=== PATIENT | female | born 1990 | race Caucasian/White ===

== ENCOUNTER 2019-07-23 13:23 | Emergency (ER) | payer MEDICAID, OTHER ==
[~2019-07-23] VITALS: Ht 165.1 cm; Wt 81.1 kg
[2019-07-23] MEDS ORDERED: NS IV 1000 ML 1,000 ML IV STA (13:48)
--- NOTE | 2019-07-23 13:54 | ED Abdominal Pain ---
General Chief Complaint: Abdominal/GI Problems Stated Complaint: SYNCOPE; SUPRAPUBIC PAIN Source of Information: Patient, RN/MD, RN Notes Reviewed Exam Limitations: No Limitations History of Present Illness Date Seen by Provider: Jul 23, 2019 Time Seen by Provider: 13:49 Initial Comments This patient is a 29-year-old female that presents to the emerge from for left lower quadrant abdominal pain. Patient describes it as stabbing. Patient states she's had this before related to ovarian cyst. Patient understands we do not have ultrasound available on this emergency department. Patient states that she was 4 wheeling . States started having abdominal pain. Came to the emergency department. Patient took a hydrocodone and Xanax prior to coming to the emergency department. Timing/Duration: 1-3 Hours Severity/Quality: Moderate Location: [facility] Radiation: No Radiation Activities at Onset: None Allergies and Home Medications Allergies Coded Allergies: Penicillins (Verified Allergy, Unknown, 07/23/19) tramadol (Verified Allergy, Unknown, 07/23/19) Patient Home Medication List Home Medication List Reviewed: Yes Review of Systems Review of Systems Constitutional: No no symptoms reported; see HPI; No chills, No diaphoresis, No dizziness, No fever, No malaise, No weakness, No weight gain, No weight loss, No other EENTM: No No Symptoms Reported, No See HPI, No Blurred Vision, No Double Vision, No Eye Pain, No Eye Tearing, No Ear Drainage, No Ear Pain, No Mouth Pain, No Mouth Swelling, No Nose Congestion, No Nose Pain, No Throat Pain, No Throat Swelling, No Other Respiratory: Denies No Symptoms Reported, Denies See HPI, Denies Cough, Denies Orthopnea, Denies Shortness of Air, Denies SOA With Exertion, Denies SOA at Rest, Denies Stridor, Denies Wheezing, Denies Other Cardiovascular: Denies No Symptoms Reported, Denies See HPI, Denies Chest Pain, Denies Edema, Denies Irregular Heart Rate, Denies Lightheadedness, Denies Palpitations, Denies Syncope, Denies Other Gastrointestinal: Denies No Symptoms Reported; See HPI; Denies Abdomen Diste nded; Abdominal Pain; Denies Blood Streaked Stools, Denies Constipated, Denies Diarrhea, Denies Difficulty Swallowing, Denies Nausea, Denies Poor Appetite, Denies Poor Fluid Intake, Denies Rectal Bleeding, Denies Vomiting, Denies Other Genitourinary: Denies No Symptoms Reported, Denies See HPI, Denies Burning, Denies Discharge, Denies Drainage, Denies Frequency, Denies Flank Pain, Denies Hematuria, Denies Incontinence; Pain; Denies Urgency, Denies Other Musculoskeletal: No no symptoms reported, No see HPI, No back pain, No gout, No joint pain, No joint swelling, No muscle pain, No muscle stiffness, No muscle cramps, No muscle twitching, No muscle weakness, No neck pain, No other Skin: No no symptoms reported, No see HPI, No change in color, No change in hair/nails, No dryness, No hx of skin cancer, No lesions, No lumps, No pruritus, No rash, No other Psychiatric/Neurological: Denies No Symptoms Reported, Denies See HPI, Denies Anxiety, Denies Depressed, Denies Emotional Problems, Denies Headache, Denies Numbness, Denies Paresthesia, Denies Pre-Existing Deficit, Denies Seizure, Denies Tingling, Denies Tremors, Denies Weakness, Denies Other All Other Systems Reviewed Negative Unless Noted: Yes Past Mcwdshn-Wlsmpd-Dghxps Hx Patient Social History Recent Foreign Travel: No Physical Exam Vital Signs Vital Signs - First Documented 07/23/19 13:25 Temp 36.9 Pulse 103 Resp 15 B/P (MAP) 115/88 (97) Pulse Ox 97 O2 Delivery Room Air Capillary Refill : Height/Weight/BMI Height: '" Weight: lbs. oz. kg; BMI Method: General Appearance: WD/WN, no apparent distress HEENT: PERRL/EOMI, normal ENT inspection, TMs normal, pharynx normal Neck: non-tender, full range of motion, supple, normal inspection Respiratory: chest non-tender, lungs clear, normal breath sounds, no respiratory distress, no accessory muscle use Cardiovascular: normal peripheral pulses, regular rate, rhythm, no edema, no gallop, no JVD, no murmur Gastrointestinal: normal bowel sounds, non tender, soft, no organomegaly, no pulsatile mass, tenderness (LLQ) Extremities: normal range of motion, non-tender, normal inspection, no pedal edema, no calf tenderness, normal capillary refill, pelvis stable Progress/Results/Core Measures Results/Orders Lab Results Laboratory Tests Test 07/23/19 13:27 07/23/19 14:26 Range/Units White Blood Count 8.6 4.3-11.0 10^3/uL Red Blood Count 5.21 4.35-5.85 10^6/uL Hemoglobin 14.7 11.5-16.0 G/DL Hematocrit 44 35-52 % Mean Corpuscular Volume 84 80-99 FL Mean Corpuscular Hemoglobin 28 25-34 PG Mean Corpuscular Hemoglobin Concent 34 32-36 G/DL Red Cell Distribution Width 12.6 10.0-14.5 % Platelet Count 338 130-400 10^3/uL Mean Platelet Volume 9.8 7.4-10.4 FL Neutrophils (%) (Auto) 66 42-75 % Lymphocytes (%) (Auto) 24 12-44 % Monocytes (%) (Auto) 6 0-12 % Eosinophils (%) (Auto) 3 0-10 % Basophils (%) (Auto) 1 0-10 % Neutrophils # (Auto) 5.7 1.8-7.8 X 10^3 Lymphocytes # (Auto) 2.1 1.0-4.0 X 10^3 Monocytes # (Auto) 0.5 0.0-1.0 X 10^3 Eosinophils # (Auto) 0.2 0.0-0.3 10^3/uL Basophils # (Auto) 0.1 0.0-0.1 10^3/uL Sodium Level 139 135-145 MMOL/L Potassium Level 4.4 3.6-5.0 MMOL/L Chloride Level 102 98-107 MMOL/L Carbon Dioxide Level 22 21-32 MMOL/L Anion Gap 15 H 5-14 MMOL/L Blood Urea Nitrogen 12 7-18 MG/DL Creatinine 0.71 0.60-1.30 MG/DL Estimat Glomerular Filtration Rate > 60 BUN/Creatinine Ratio 17 Glucose Level 99 70-105 MG/DL Calcium Level 9.7 8.5-10.1 MG/DL Corrected Calcium 9.4 8.5-10.1 MG/DL Total Bilirubin 0.2 0.1-1.0 MG/DL Aspartate Amino Transf (AST/SGOT) 16 5-34 U/L Alanine Aminotransferase (ALT/SGPT) 17 0-55 U/L Alkaline Phosphatase 75 40-136 U/L Total Protein 7.2 6.4-8.2 GM/DL Albumin 4.4 3.2-4.5 GM/DL Amylase Level 46 25-125 U/L Lipase 16 8-78 U/L Human Chorionic Gonadotropin, Quant < 5 <5 MIU/ML Urine Color YELLOW Urine Clarity CLEAR Urine pH 5.0 5-9 Urine Specific Jackson 1.010 L 1.016-1.022 Urine Protein NEGATIVE NEGATIVE Urine Glucose (UA) NEGATIVE NEGATIVE Urine Ketones NEGATIVE NEGATIVE Urine Nitrite NEGATIVE NEGATIVE Urine Bilirubin NEGATIVE NEGATIVE Urine Urobilinogen 0.2 < = 1.0 MG/DL Urine Leukocyte Esterase NEGATIVE NEGATIVE Urine RBC (Auto) NEGATIVE NEGATIVE Urine RBC NONE /HPF Urine WBC NONE /HPF Urine Squamous Epithelial Cells 2-5 /HPF Urine Crystals NONE /LPF Urine Bacteria TRACE /HPF Urine Casts NONE /LPF Urine Mucus NEGATIVE /LPF Urine Culture Indicated NO Urine Opiates Screen POSITIVE H NEGATIVE Urine Oxycodone Screen NEGATIVE NEGATIVE Urine Methadone Screen NEGATIVE NEGATIVE Urine Propoxyphene Screen NEGATIVE NEGATIVE Urine Barbiturates Screen NEGATIVE NEGATIVE Ur Tricyclic Antidepressants Screen NEGATIVE NEGATIVE Urine Phencyclidine Screen NEGATIVE NEGATIVE Urine Amphetamines Screen NEGATIVE NEGATIVE Urine Methamphetamines Screen NEGATIVE NEGATIVE Urine Benzodiazepines Screen POSITIVE H NEGATIVE Urine Cocaine Screen NEGATIVE NEGATIVE Urine Cannabinoids Screen NEGATIVE NEGATIVE My Orders Orders - GARTH ROLDAN MD Comprehensive Metabolic Panel (07/23/19 13:46) Lipase (07/23/19 13:46) Amylase (07/23/19 13:46) Ua Culture If Indicated (07/23/19 13:46) Ed Iv/Invasive Line Start (07/23/19 13:46) Cbc With Automated Diff (07/23/19 13:46) Ct Abdomen/Pelvis W (07/23/19 13:46) Hcg,Quantitative (07/23/19 13:46) Drug Screen Stat (Urine) (07/23/19 13:48) Ns Iv 1000 Ml (Sodium Chloride 0.9%) (07/23/19 13:48) Iohexol Injection (Omnipaque 350 Mg/Ml 1 (07/23/19 14:00) Received Contrast (Hold Metformin- Contr (07/23/19 14:00) Sodium Chloride Flush (Catheter Flush Sy (07/23/19 14:00) Ns (Ivpb) (Sodium Chloride 0.9% Ivpb Bag (07/23/19 14:00) Medications Given in ED Current Medications Medications Dose Ordered Sig/Magalie Route Start Time Stop Time Status Last Admin Dose Admin Iohexol 100 ml ONCE ONCE IV 07/23/19 14:00 07/23/19 14:01 DC 07/23/19 14:32 100 ML Sodium Chloride 10 ml NEEDED PRN IV 07/23/19 14:00 07/23/19 14:32 10 ML Sodium Chloride 100 ml ONCE ONCE IV 07/23/19 14:00 07/23/19 14:01 DC 07/23/19 14:32 80 ML Vital Signs/I&O 07/23/19 13:25 Temp 36.9 Pulse 103 Resp 15 B/P (MAP) 115/88 (97) Pulse Ox 97 O2 Delivery Room Air Progress Progress Note : Time: 15:52 Progress Note Negative for any acute findings. Patient does have an old clapped ovarian cyst on the right and negative on the left. Patient does not appear to be in acute pain has been sleeping since arrival to the emergency department. Patient did take home hydrocodone and Xanax prior to coming to the emergency department. We'll write a prescription for diclofenac for abdominal pain. Patient encouraged to have rest and encourage by mouth fluids and follow-up with her PCP in 2-3 days. Departure Impression Primary Impression: Nonspecific abdominal pain Disposition: HOME, SELF-CARE Condition: Stable Departure-Patient Inst. Patient Instructions: Ovarian Cyst (DC) Add. Discharge Instructions: Take prescription for diclofenac for abdominal pain. Patient encouraged to have rest and encourage by mouth fluids and follow-up with her PCP in 2-3 days. All discharge instructions reviewed with patient and/or family. Voiced understanding. Scripts Diclofenac Sodium (Diclofenac Sodium) 75 Mg Tablet. 75 MG PO BID for 10 Days, #20 TAB 0 Refills Prov: GARTH ROLDAN MD 07/23/19 GARTH ROLDAN MD Jul 23, 2019 13:54
[2019-07-23 13:58] LABS: HEMATOCRIT 44 % (35-52); HEMOGLOBIN 14.7 G/DL (11.5-16.0); MEAN CORPUSCULAR HEMOGLOBIN 28 PG (25-34); MEAN CORPUSCULAR VOLUME 84 FL (80-99); WHITE BLOOD COUNT 8.6 10^3/uL (4.3-11.0)
[2019-07-23 13:59] LABS: BASOPHILS # (AUTO) 0.1 10^3/uL (0.0-0.1); BASOPHILS % (AUTO) 1 % (0-10); EOSINOPHILS # (AUTO) 0.2 10^3/uL (0.0-0.3); EOSINOPHILS % (AUTO) 3 % (0-10); LYMPHOCYTES # (AUTO) 2.1 X 10^3 (1.0-4.0); LYMPHOCYTES % (AUTO) 24 % (12-44); MEAN CORPUSCULAR HGB CONC 34 G/DL (32-36); MEAN PLATELET VOLUME 9.8 FL (7.4-10.4); MONOCYTES # (AUTO) 0.5 X 10^3 (0.0-1.0); MONOCYTES % (AUTO) 6 % (0-12); NEUTROPHILS # (AUTO) 5.7 X 10^3 (1.8-7.8); NEUTROPHILS % (AUTO) 66 % (42-75); PLATELET COUNT 338 10^3/uL (130-400); RED CELL DISTRIBUTION WIDTH 12.6 % (10.0-14.5)
[2019-07-23] MEDS ORDERED: IOHEXOL 350 MG/ML 100 ML (OMNIPAQUE 350) VIAL IV ONE (14:00)
[2019-07-23] MEDS ORDERED: HOLD METFORMIN - RECEIVED CONTRAST 20 ML VIAL IV SCH (14:00)
[2019-07-23] MEDS ORDERED: CATHETER FLUSH 10 ML SYR IV PRN (14:00)
[2019-07-23] MEDS ORDERED: NS 100 ML (IVPB) BAG IV ONE (14:00)
[2019-07-23 14:19] LABS: BUN/CREATININE RATIO 17; CARBON DIOXIDE 22 MMOL/L (21-32); CHLORIDE 102 MMOL/L (98-107); CREATININE SERUM 0.71 MG/DL (0.60-1.30); GFR ESTIMATED > 60; GLUCOSE 99 MG/DL (70-105); POTASSIUM 4.4 MMOL/L (3.6-5.0); SODIUM 139 MMOL/L (135-145)
[2019-07-23 14:20] LABS: ALANINE AMINOTRANSFERASE 17 U/L (0-55); ALBUMIN 4.4 GM/DL (3.2-4.5); ALKALINE PHOSPHATASE 75 U/L (40-136); AMYLASE 46 U/L (25-125); BILIRUBIN,TOTAL 0.2 MG/DL (0.1-1.0); CALCIUM 9.7 MG/DL (8.5-10.1); LIPASE 16 U/L (8-78); TOTAL PROTEIN 7.2 GM/DL (6.4-8.2)
--- NOTE | 2019-07-23 14:43 | Diagnostic Imaging Report ---
PROCEDURE: CT abdomen and pelvis with contrast. TECHNIQUE: Multiple contiguous axial images were obtained through the abdomen and pelvis after administration of intravenous contrast. Auto Exposure Controls were utilized during the CT exam to meet ALARA standards for radiation dose reduction. INDICATION: Left lower quadrant pain. COMPARISON: No prior studies are available for comparison. FINDINGS: The lung bases are clear. There is an 11 mm low density in the inferior right lobe of the liver which is too small to characterize but is perhaps a small cyst. No other liver lesions are identified. The gallbladder is surgically absent. No biliary ductal dilatation is identified. The pancreas and spleen are unremarkable. No adrenal mass is detected. The kidneys are without evidence of hydronephrosis. The aorta is nonaneurysmal. The small and large bowel loops appear to be of normal caliber. No obstruction is identified. No free fluid in the abdomen or pelvis is identified. There is a partially collapsed cyst in the right ovary measuring 18 mm. The left ovary is unremarkable. The bladder and uterus are unremarkable. No inflammatory changes are seen. The bony structures are nonacute. IMPRESSION: 1. Hepatic low density which is too small to characterize but perhaps a small cyst. 2. Partially collapsed 18 mm right ovarian cyst. 3. No other significant abnormality in the abdomen or pelvis is identified. Dictated by: Dictated on workstation # [id number]
[2019-07-23 15:15] LABS: CLARITY,URINE CLEAR; COLOR,URINE YELLOW
[2019-07-23 15:16] LABS: BACTERIA,URINE TRACE /HPF; BILIRUBIN,URINE NEGATIVE (NEGATIVE); GLUCOSE, URINE (UA) NEGATIVE (NEGATIVE); KETONES,URINE NEGATIVE (NEGATIVE); LEUKOCYTE ESTERASE ,URINE NEGATIVE (NEGATIVE); NITRITE,URINE NEGATIVE (NEGATIVE); PROTEIN,URINE NEGATIVE (NEGATIVE)
[2019-07-23 15:22] LABS: AMPHETAMINE SCREEN, URINE NEGATIVE (NEGATIVE); BARBITURATE SCREEN URINE NEGATIVE (NEGATIVE); BENZODIAZEPINES SCREEN URINE POSITIVE (NEGATIVE); CANNABINOID SCREEN, URINE NEGATIVE (NEGATIVE); COCAINE SCREEN URINE NEGATIVE (NEGATIVE); METHADONE STAT NEGATIVE (NEGATIVE); METHAMPHETAMINE SCREEN URINE S NEGATIVE (NEGATIVE); OPIATE SCREEN URINE POSITIVE (NEGATIVE); OXYCODONE STAT NEGATIVE (NEGATIVE); PROPOXYPHENE STAT NEGATIVE (NEGATIVE); TRICYCLIC ANTIDEPRESSANTS SCRE NEGATIVE (NEGATIVE)
[2019-07-23] MEDS ORDERED: DICL75TA2 PO (15:54)
[2019-07-23 16:08] VITALS: BP 131/62
== END 2019-07-23 16:08 | disposition home or self-care (01) ==
LOC: ER FS 13:25
DX: R10.32 Left lower quadrant pain (principal); Z88.0 Allergy status to penicillin; Z88.5 Allergy status to narcotic agent
CPT/HCPCS: 36415; 74177; 80053; 80306; 81000; 82150; 83690; 84702; 85025

== ENCOUNTER → 2019-08-08 | Outpatient (CLI) | payer MEDICAID ==
[~2019-08-08] MED LIST: DICL75TA2 PO
--- NOTE | 2019-08-08 11:39 | Diagnostic Imaging Report ---
INDICATION: Chronic back pain. Time of exam 11:23 AM Frontal and lateral views of the lumbar spine were obtained. Coned lumbosacral view was also obtained. Curvature and alignment is normal. Vertebral body heights and disc spaces are well-maintained. No fracture or subluxation is identified. IMPRESSION: No acute bony abnormality is detected. Dictated by: Dictated on workstation # [id number]
== END ==
LOC: RAD FS 10:57
PROVIDERS: ATTEND Nurse Practitioner Family
DX: M54.41 Lumbago with sciatica, right side (principal); M54.42 Lumbago with sciatica, left side; G89.29 Other chronic pain
CPT/HCPCS: 72100

== ENCOUNTER → 2019-08-28 | Outpatient (CLI) | payer MEDICAID, OTHER ==
--- NOTE | 2019-08-28 13:13 | Diagnostic Imaging Report ---
PROCEDURE: MRI lumbar spine. TECHNIQUE: Multiplanar, multisequence MRI of the lumbar spine was performed without contrast. INDICATION: Chronic low back pain. COMPARISON: No prior studies are available for comparison. FINDINGS: Curvature and alignment of the lumbar spine is normal. Vertebral body heights are maintained. The marrow signal intensity appears normal. No geographic marrow lesion or compression fracture is seen. There appears to be normal height and hydration to the lumbar intervertebral discs. Conus is unremarkable at the L1 level. T12-L1: Central canal and neural foramina are widely patent. L1-L2: The central canal and neural foramina are widely patent. L2-L3: Central canal and neural foramina are widely patent. L3-L4: Central canal and neural foramina are widely patent. L4-L5: Very minimal midline disc bulge is seen but no resultant central canal narrowing is identified. Neural foramina are widely patent. There does appear to be some mild degenerative facet changes noted. L5-S1: Central canal and neural foramina are widely patent. Very mild facet degenerative changes seen. Paraspinous tissues are unremarkable. IMPRESSION: Essentially unremarkable MRI of the lumbar spine apart from lower lumbar facet arthropathy as well very tiny disc bulge at L4-L5. No resultant central canal or neural foraminal stenosis is identified. Dictated by: Dictated on workstation # [id number]
== END ==
LOC: RAD 11:48
PROVIDERS: ATTEND Physician Assistant
DX: M46.96 Unspecified inflammatory spondylopathy, lumbar region (principal)
CPT/HCPCS: 72148

== ENCOUNTER 2019-10-30 11:12 | Emergency (ER) | payer MEDICAID ==
[~2019-10-30] VITALS: Ht 165 cm; Wt 80.0 kg
--- OUTSIDE RECORDS SUMMARY | 2019-10-30 11:33 | XMS REPORT | Continuity of Care Document ---
Author Organization Unknown Address Unknown Phone Unavailable Allergies Active Description Code Type Severity Reaction Onset Reported/Identified Relationship to Patient Clinical Status Yes Penicillins [id number] Drug Aller gy Unknown N/A 07/23/2019 Yes tramadol [id number] Drug Allergy Unknown N/A 07/23/2019 Medications There is no data. Problems Date Dx Coded Attending Type Code Diagnosis Diagnosed By 07/23/2019 GARTH ROLDAN MD Ot R10.32 LEFT LOWER QUADRANT PAIN 07/23/2019 GARTH ROLDAN MD Ot Z88.0 ALLERGY STATUS TO PENICILLIN 07/23/2019 GARTH ROLDAN MD Ot Z88.5 ALLERGY STATUS TO NARCOTIC AGENT STATUS 07/25/2019 GARTH ROLDAN MD Ot R10.32 LEFT LOWER QUADRANT PAIN 07/25/2019 GARTH ROLDAN MD Ot Z88.0 ALLERGY STATUS TO PENICILLIN 07/25/2019 GARTH ROLDAN MD Ot Z88.5 ALLERGY STATUS TO NARCOTIC AGENT STATUS 08/09/2019 O'DELL, ALIVIA K CAMERA PERSON Ot G89.29 OTHER CHRONIC PAIN 08/09/2019 O'DELL, ALIVIA K CAMERA PERSON Ot M54.41 LUMBAGO WITH SCIATICA, RIGHT SIDE 08/09/2019 O'DELL, ALIVIA K CAMERA PERSON Ot M54.42 LUMBAGO WITH SCIATICA, LEFT SIDE 08/11/2019 O'DELL, ALIVIA K CAMERA PERSON Ot G89.29 OTHER CHRONIC PAIN 08/11/2019 O'DELL, ALIVIA K CAMERA PERSON Ot M54.41 LUMBAGO WITH SCIATICA, RIGHT SIDE 08/11/2019 O'DELL, ALIVIA K CAMERA PERSON Ot M54.42 LUMBAGO WITH SCIATICA, LEFT SIDE 08/12/2019 O'DELL, ALIVIA K CAMERA PERSON Ot G89.29 OTHER CHRONIC PAIN 08/12/2019 O'DELL, ALIVIA K CAMERA PERSON Ot M54.41 LUMBAGO WITH SCIATICA, RIGHT SIDE 08/12/2019 O'DELL, ALIVIA K CAMERA PERSON Ot M54.42 LUMBAGO WITH SCIATICA, LEFT SIDE 08/12/2019 O'DELL, ALIVIA K CAMERA PERSON Ot G89.29 OTHER CHRONIC PAIN 08/12/2019 O'DELL, ALIVIA K CAMERA PERSON Ot M54.41 LUMBAGO WITH SCIATICA, RIGHT SIDE 08/12/2019 O'DELL, ALIVIA K CAMERA PERSON Ot M54.42 LUMBAGO WITH SCIATICA, LEFT SIDE 08/12/2019 O'DELL, ALIVIA K CAMERA PERSON Ot G89.29 OTHER CHRONIC PAIN 08/12/2019 O'DELL, ALIVIA K CAMERA PERSON Ot M54.41 LUMBAGO WITH SCIATICA, RIGHT SIDE 08/12/2019 O'DELL, ALIVIA K CAMERA PERSON Ot M54.42 LUMBAGO WITH SCIATICA, LEFT SIDE 08/13/2019 O'DELL, ALIVIA K CAMERA PERSON Ot G89.29 OTHER CHRONIC PAIN 08/13/2019 O'DELL, ALIVIA K CAMERA PERSON Ot M54.41 LUMBAGO WITH SCIATICA, RIGHT SIDE 08/13/2019 O'DELL, ALIVIA K CAMERA PERSON Ot M54.42 LUMBAGO WITH SCIATICA, LEFT SIDE 08/14/2019 O'DELL, ALIVIA K CAMERA PERSON Ot G89.29 OTHER CHRONIC PAIN 08/14/2019 O'DELL, ALIVIA K CAMERA PERSON Ot M54.41 LUMBAGO WITH SCIATICA, RIGHT SIDE 08/14/2019 O'DELL, ALIVIA K CAMERA PERSON Ot M54.42 LUMBAGO WITH SCIATICA, LEFT SIDE 08/21/2019 O'DELL, ALIVIA K CAMERA PERSON Ot G89.29 OTHER CHRONIC PAIN 08/21/2019 O'DELL, ALIVIA K CAMERA PERSON Ot M54.41 LUMBAGO WITH SCIATICA, RIGHT SIDE 08/21/2019 O'DELL, ALIVIA K CAMERA PERSON Ot M54.42 LUMBAGO WITH SCIATICA, LEFT SIDE 08/23/2019 O'DELL, ALIVIA K CAMERA PERSON Ot G89.29 OTHER CHRONIC PAIN 08/23/2019 O'DELL, ALIVIA K CAMERA PERSON Ot M54.41 LUMBAGO WITH SCIATICA, RIGHT SIDE 08/23/2019 O'DELL, ALIVIA K CAMERA PERSON Ot M54.42 LUMBAGO WITH SCIATICA, LEFT SIDE 08/23/2019 O'DELL, ALIVIA K CAMERA PERSON Ot G89.29 OTHER CHRONIC PAIN 08/23/2019 O'DELL, ALIVIA K CAMERA PERSON Ot M54.41 LUMBAGO WITH SCIATICA, RIGHT SIDE 08/23/2019 O'DELL, ALIVIA K CAMERA PERSON Ot M54.42 LUMBAGO WITH SCIATICA, LEFT SIDE 08/25/2019 O'DELL, ALIVIA K CAMERA PERSON Ot G89.29 OTHER CHRONIC PAIN 08/25/2019 O'DELL, ALIVIA K CAMERA PERSON Ot M54.41 LUMBAGO WITH SCIATICA, RIGHT SIDE 08/25/2019 O'DELL, ALIVIA K CAMERA PERSON Ot M54.42 LUMBAGO WITH SCIATICA, LEFT SIDE Procedures There is no data. Results Test Result Range Complete blood count (CBC) with automate d white blood cell (WBC) differential - 07/23/19 13:27 Blood leukocytes automated count (number/volume) 8.6 10*3/uL 4.3-11.0 Blood erythrocytes automated count (number/volume) 5.21 10*6/uL 4.35-5.85 Venous blood hemoglobin measurement (mass/volume) 14.7 g/dL 11.5-16.0 Blood hematocrit (volume fraction) 44 % 35-52 Automated erythrocyte mean corpuscular volume 84 [ foz_us] 80-99 Automated erythrocyte mean corpuscular h emoglobin (mass per erythrocyte) 28 pg 25-34 Automated erythrocyte mean corpuscular h emoglobin concentration measurement (mass/volume) 34 g/dL 32-36 Automated erythrocyte distribution width ratio 12. 6 % 10.0- 14.5 Automated blood platelet count (count/volume) 338 10*3/uL 130-400 Automated blood platelet mean volume measurement 9.8 [foz_us] 7.4-10.4 Automated blood neutrophils/100 leukocytes 66 % 42-75 Automated blood lymphocytes/100 leukocytes 24 % 12-44 Blood monocytes/100 leukocytes 6 % 0-12 Automated blood eosinophils/100 leukocytes 3 % 0-10 Automated blood basophils/100 leukocytes 1 % 0-10 Blood neutrophils automated count (number/volume) 5.7 10*3 1.8-7.8 Blood lymphocytes automated count (number/volume) 2.1 10*3 1.0-4.0 Blood monocytes automated count (number/volume) 0. 5 10*3 0.0-1.0 Automated eosinophil count 0.2 10*3/uL 0 .0-0.3 Automated blood basophil count (count/volume) 0.1 10*3/uL 0.0-0.1 Serum or plasma choriogonadotropin measu rement (units/volume) - 07/23/19 13:27 Serum or plasma choriogonadotropin measurement (units/ volume) < m[iU]/mL <5 Comprehensive metabolic panel - 07/23/19 13:27 Serum or plasma sodium measurement (moles/volume) 139 mmol/L 135-145 Serum or plasma potassium measurement (moles/volume) 4.4 mmol/L 3.6-5.0 Serum or plasma chloride measurement (moles/volume) 102 mmol/L 98-107 Carbon dioxide 22 mmol/L 21-32 Serum or plasma anion gap determination (moles/volume) 15 mmol/L 5-14 Serum or plasma urea nitrogen measurement (mass/volume ) 12 mg/dL 7-18 Serum or plasma creatinine measurement (mass/volume) 0.71 mg/dL 0.60-1.30 Serum or plasma urea nitrogen/creatinine mass ratio 17 NRG Serum or plasma creatinine measurement w ith calculation of estimated glomerular filtration rate > NRG Serum or plasma glucose measurement (mass/volume) 99 mg/dL 70-105 Serum or plasma calcium measurement (mass/volume) 9.7 mg/dL 8.5-10.1 Serum or plasma total bilirubin measurement (mass/volu me) 0.2 mg/dL 0.1-1.0 Serum or plasma alkaline phosphatase julian surement (enzymatic activity/volume) 75 U/L 40-136 Serum or plasma aspartate aminotransfera se measurement (enzymatic activity/volume) 16 U/L 5-34 Serum or plasma alanine aminotransferase measurement (enzymatic activity/volume) 17 U/L 0-55 Serum or plasma protein measurement (mass/volume) 7.2 g/dL 6.4-8.2 Serum or plasma albumin measurement (mass/volume) 4.4 g/dL 3.2-4.5 CALCIUM CORRECTED 9.4 mg/dL 8.5-10.1 Serum or plasma amylase measurement (enz ymatic activity/volume) - 07/23/19 13:27 Serum or plasma amylase measurement (enzymatic activit y/volume) 46 U/L 25-125 Lipase - 07/23/19 13:27 Lipase 16 U/L 8-78 Complete urinalysis with reflex to cultu re - 07/23/19 14:26 Urine color determination YELLOW NRG Urine clarity determination CLEAR NR G Urine pH measurement by test strip 5.0 5-9 Specific gravity of urine by test strip 1.010 1.016-1.022 Urine protein assay by test strip, semi-quantitative NEGATIVE NEGATIVE Urine glucose detection by automated test strip NE GATIVE NEGATIVE Erythrocytes detection in urine sediment by light micr oscopy NEGATIVE NEGATIVE Urine ketones detection by automated test strip NE GATIVE NEGATIVE Urine nitrite detection by test strip NEGATIVE NEGATIVE Urine total bilirubin detection by test strip NEGA TIVE NEGATIVE Urine urobilinogen measurement by automated test strip (mass/volume) 0.2 mg/dL < = 1.0 Urine leukocyte esterase detection by dipstick NEG ATIVE NEGATIVE Automated urine sediment erythrocyte cou nt by microscopy (number/high power field) NONE NRG Automated urine sediment leukocyte count by microscopy (number/high power field) NONE NRG Bacteria detection in urine sediment by light microsco py TRACE NRG Squamous epithelial cells detection in u rine sediment by light microscopy 2-5 NRG Crystals detection in urine sediment by light microsco py NONE NRG Casts detection in urine sediment by light microscopy NONE NRG Mucus detection in urine sediment by light microscopy NEGATIVE NRG Complete urinalysis with reflex to culture NO NRG Urine drug screening test - 07/23/19 14: 26 Urine phencyclidine detection by screening method NEGATIVE NEGATIVE Urine benzodiazepines detection by screening method POSITIVE NEGATIVE Urine cocaine detection NEGATIVE NEGATI VE Urine amphetamines detection by screening method N EGATIVE NEGATIVE Urine methamphetamine detection by screening method NEGATIVE NEGATIVE Urine cannabinoids detection by screening method N EGATIVE NEGATIVE Urine opiates detection by screening method POSITI VE NEGATIVE Urine barbiturates detection NEGATIVE N EGATIVE Screening urine tricyclic antidepressants detection NEGATIVE NEGATIVE Urine methadone detection by screening method NEGA TIVE NEGATIVE Urine oxycodone detection NEGATIVE NEGA TIVE Urine propoxyphene detection NEGATIVE N EGATIVE T3 FREE - 08/08/19 10:41 T3, FREE 3.5 pg/mL 2.3-4.2 PATHOLOGY REPORT (TISSUE PAHOLOGY) - 10:08 A SOURCE NRG A GROSS DESCRIPTION NRG A DIAGNOSIS NRG CLINICAL INFORMATION NRG PATHOLOGIST NRG PATHOLOGY REPORT (TISSUE PAHOLOGY) - 01/13 16:28 A SOURCE NRG A GROSS DESCRIPTION NRG A DIAGNOSIS NRG CLINICAL INFORMATION NRG PATHOLOGIST NRG HCG, QUANTITATIVE - 09/12/19 10:19 HCG, TOTAL, QN NRG HCG, QUANTITATIVE - 09/12/19 11:23 HCG, TOTAL, QN <3 mIU/mL NRG Encounters ACCT No. Visit Date/Time Discharge Status Pt. Type Provider Facility Loc./Unit Complaint [id number] 09/12/2019 09:20:00 09/12/2019 23:59: 59 CLS Outpatient ALIVIA CHAIREZ [facility] [id number] 09/12/2019 10:19:00 Document Registration [id number] 09/12/2019 09:20:00 Document Registration [id number] 09/04/2019 15:30:00 Document Registration [id number] 08/21/2019 10:00:00 Document Registration [id number] 08/08/2019 10:00:00 Document Registration [id number] 08/28/2019 11:48:00 23:59:59 CLS Outpatient KAMILLE COOPER [facility] RAD BACK PAIN [id number] 08/08/2019 10:57:00 23:59:59 CLS Outpatient ALIVIA RODRIGUEZ [employer] PERSON [facility] RAD FS LUMBAGO WITH SCIATICA L RT SIDE,OTHER CHRONIC PA [id number] 07/23/2019 13:25:00 16:08:00 DIS Emergency GARTH ROLDAN MD [facility] ER FS SYNCOPE; SUPRAPUBIC SELINA N [id number] 10/30/2019 11:13:[address] Emergency DAVIDE SHAH DO [facility] ER FS SOB; CHEST PAIN
[2019-10-30] MEDS ORDERED: LORazepam INJ 2 MG/ML (ATIVAN) VIAL IVP ONE (12:15)
[2019-10-30] MEDS ORDERED: ANTACID SUSP 30 ML UDC (MYLANTA) PO ONE (12:15)
[2019-10-30] MEDS ORDERED: ONDANSETRON 4 MG/2 ML (SDV) Z0FRAN IVP ONE (12:15)
[2019-10-30] MEDS ORDERED: ASPIRIN 81 MG CHEW (CHILDREN'S ASA) PO ONE (12:15)
[2019-10-30] MEDS ORDERED: LIDOCAINE 2% VISCOUS 15 ML UDC PO ONE (12:15)
[2019-10-30] MEDS ORDERED: NS IV 1000 ML 1,000 ML IV SCH (12:15)
--- NOTE | 2019-10-30 12:25 | ED General ---
General Chief Complaint: General Problems/Pain Stated Complaint: SOB; CHEST PAIN Nursing Triage Note: PT FEELS LIKE HER HEART IS POUNDING OUT OF HER CHEST AND HAS BEEN OFF AND ON FOR DAYS SINCE HER LUMBAR INJECTIONS A WEEK AGO. Nursing Sepsis Screen: No Definite Risk History of Present Illness Date Seen by Provider: Oct 30, 2019 Time Seen by Provider: 12:22 Initial Comments Patient presenting to emergency department for evaluation of chest pain that has been going off and on since 8:00 this morning she says she woke up with the pain and she was nonexertional and says it felt like a burning sensation on the left side of her chest that made her feel short of breath and nauseated. She had no vomiting or diaphoresis but she says that she feels tingly all over. She says that she had epidural injection that her L4-L5 one week ago and says it has not helped her back pain but there is no unilateral weakness numbness tingling or bowel or bladder incontinence. She denies any history of hypertension diabetes high cholesterol or family history of heart disease but she does smoke cigarettes. She appears anxious and I asked her if she does have a history of anxiety which she denied. She is in no obvious distress with normal vital signs except for intermittent tachycardia. Allergies and Home Medications Allergies Coded Allergies: Penicillins (Verified Allergy, Unknown, 07/23/19) tramadol (Verified Allergy, Unknown, 07/23/19) Home Medications Diclofenac Sodium 75 Mg Tablet.dr, 75 MG PO BID Prescribed by: GARTH ROLDAN on 07/23/19 5829 Patient Home Medication List Home Medication List Reviewed: Yes Review of Systems Review of Systems Constitutional: no symptoms reported EENTM: no symptoms reported Respiratory: short of breath Cardiovascular: chest pain Gastrointestinal: nausea Genitourinary: no symptoms reported Musculoskeletal: back pain Skin: no symptoms reported Psychiatric/Neurological: Tingling All Other Systems Reviewed Negative Unless Noted: Yes Past Fjwjial-Raguqy-Corntw Hx Patient Social History Alcohol Use: Denies Use Recreational Drug Use: No Type Used: Cigarettes 2nd Hand Smoke Exposure: No Recent Foreign Travel: No Contact w/Someone Who Travel: No Recent Infectious Disease Expo: No Recent Hopitalizations: No Physical Abuse: No Sexual Abuse: No Mistreated: No Fear: No Seasonal Allergies Seasonal Allergies: No Past Medical History Surgeries: Yes (D&C) Section, Gallbladder, Tonsillectomy Respiratory: No Cardiac: No Neurological: No Female Reproductive Disorders: Ovarian Cyst HIV/AIDS: No Genitourinary: No Gastrointestinal: No Musculoskeletal: No Endocrine: Yes (Hypoglycemia) HEENT: No Cancer: No Psychosocial: No Blood Disorders: Yes (Anemia) Physical Exam Vital Signs Vital Signs - First Documented 10/30/19 11:59 Temp 36.9 Pulse 91 Resp 18 B/P (MAP) 127/80 (96) Pulse Ox 97 O2 Delivery Room Air Capillary Refill : Less Than 3 Seconds Height, Weight, BMI Height: '" Weight: lbs. oz. kg; 29.00 BMI Method: General Appearance: No Apparent Distress, WD/WN, Anxious HEENT: PERRL/EOMI Neck: Supple Respiratory: Lungs Clear, No Respiratory Distress Cardiovascular: Regular Rate, Rhythm Gastrointestinal: Non Tender, Soft Extremity: Normal Capillary Refill Neurologic/Psychiatric: Alert, Oriented x3 Skin: Warm/Dry Progress/Results/Core Measures Suspected Sepsis Recent Fever Within 48 Hours: No Infection Criteria Present: None New/Unexplained Altered Menta: No Sepsis Screen: No Definite Risk SIRS Temperature: Pulse: 91 Respiratory Rate: 18 Laboratory Tests 10/30/19 12:29: White Blood Count 10.8 Blood Pressure 127 /80 Mean: 96 Laboratory Tests 10/30/19 12:29: Creatinine 0.83, Platelet Count 344, Total Bilirubin 0.2 Results/Orders Lab Results Laboratory Tests Test 10/30/19 12:29 Range/Units White Blood Count 10.8 4.3-11.0 10^3/uL Red Blood Count 5.16 4.35-5.85 10^6/uL Hemoglobin 14.5 11.5-16.0 G/DL Hematocrit 44 35-52 % Mean Corpuscular Volume 85 80-99 FL Mean Corpuscular Hemoglobin 28 25-34 PG Mean Corpuscular Hemoglobin Concent 33 32-36 G/DL Red Cell Distribution Width 13.2 10.0-14.5 % Platelet Count 344 130-400 10^3/uL Mean Platelet Volume 9.9 7.4-10.4 FL Neutrophils (%) (Auto) 71 42-75 % Lymphocytes (%) (Auto) 19 12-44 % Monocytes (%) (Auto) 7 0-12 % Eosinophils (%) (Auto) 2 0-10 % Basophils (%) (Auto) 0 0-10 % Neutrophils # (Auto) 7.7 1.8-7.8 X 10^3 Lymphocytes # (Auto) 2.1 1.0-4.0 X 10^3 Monocytes # (Auto) 0.8 0.0-1.0 X 10^3 Eosinophils # (Auto) 0.3 0.0-0.3 10^3/uL Basophils # (Auto) 0.0 0.0-0.1 10^3/uL D-Dimer 0.14 0.00-0.49 UG/ML Sodium Level 140 135-145 MMOL/L Potassium Level 4.7 3.6-5.0 MMOL/L Chloride Level 107 98-107 MMOL/L Carbon Dioxide Level 22 21-32 MMOL/L Anion Gap 11 5-14 MMOL/L Blood Urea Nitrogen 12 7-18 MG/DL Creatinine 0.83 0.60-1.30 MG/DL Estimat Glomerular Filtration Rate > 60 BUN/Creatinine Ratio 14 Glucose Level 93 70-105 MG/DL Calcium Level 10.0 8.5-10.1 MG/DL Corrected Calcium 9.8 8.5-10.1 MG/DL Total Bilirubin 0.2 0.1-1.0 MG/DL Aspartate Amino Transf (AST/SGOT) 12 5-34 U/L Alanine Aminotransferase (ALT/SGPT) 12 0-55 U/L Alkaline Phosphatase 81 40-136 U/L Troponin I < 0.30 <0.30 NG/ML Pro-B-Type Natriuretic Peptide 12.4 <75.0 PG/ML Total Protein 7.1 6.4-8.2 GM/DL Albumin 4.3 3.2-4.5 GM/DL My Orders Orders - DAVIDE SHAH DO Cbc With Automated Diff (10/30/19 12:02) Comprehensive Metabolic Panel (10/30/19 12:02) Troponin I Fs (10/30/19 12:02) Fibrin Degradation Products (10/30/19 12:02) Probnp Fs (10/30/19 12:02) Chest 1 View Ap/Pa Only (10/30/19 12:02) Iv/Invasive Line Insertion .IV start (10/30/19 12:02) Ekg Tracing (10/30/19 12:02) Lorazepam Injection (Ativan Injection) (10/30/19 12:15) Aspirin Chewable Tablet (Baby Aspirin Ch (10/30/19 12:15) Antacid Suspension (Mylanta Suspension (10/30/19 12:15) Lidocaine 2% Viscous 15 Ml (Xylocaine Vi (10/30/19 12:15) Ondansetron Injection (Zofran Injectio (10/30/19 12:15) Ns Iv 1000 Ml (Sodium Chloride 0.9%) (10/30/19 12:15) Medications Given in ED Current Medications Medications Dose Ordered Sig/Magalie Route Start Time Stop Time Status Last Admin Dose Admin Al Hydrox/Mg Hydrox/Simethicone 30 ml ONCE ONCE PO 10/30/19 12:15 10/30/19 12:16 DC 10/30/19 12:17 30 ML Aspirin 324 mg ONCE ONCE PO 10/30/19 12:15 10/30/19 12:16 DC 10/30/19 12:19 324 MG Lidocaine HCl 5 ml ONCE ONCE PO 10/30/19 12:15 10/30/19 12:16 DC 10/30/19 12:17 5 ML Lorazepam 1 mg ONCE ONCE IVP 10/30/19 12:15 10/30/19 12:16 DC 10/30/19 12:23 1 MG Ondansetron HCl 4 mg ONCE ONCE IVP 10/30/19 12:15 10/30/19 12:16 DC 10/30/19 12:22 4 MG Vital Signs/I&O 10/30/19 11:59 Temp 36.9 Pulse 91 Resp 18 B/P (MAP) 127/80 (96) Pulse Ox 97 O2 Delivery Room Air Capillary Refill : Less Than 3 Seconds Blood Pressure Mean: 96 Progress Note : Progress Note Patient with pain that is atypical for ACS in my opinion I will check labs chest x-ray treat symptoms and reassess. Patient's workup came back completely normal and she continues to appear well normal vital signs including a heart rate of 80. I suspect this is likely gastritis or esophagitis that may be causing her some anxiety as well. I recommended follow-up with her primary care provider within 2-3 days for recheck and I will start her on Prilosec and to come back to the ED sooner with worsening pain fevers vomiting or other general concerns. Patient aware and agreeable with plan and verbalized understanding of the above instructions. Departure Impression Primary Impression: Chest pain at rest Additional Impression: Anxiety Disposition: HOME, SELF-CARE Condition: Stable Departure-Patient Inst. Referrals: [facility] (PCP) Primary Care Physician ALIVIA RODRIGUEZ APRN (Family) Primary Care Physician Patient Instructions: Chest Pain (DC) Scripts Omeprazole Magnesium (Prilosec Otc) 20 Mg Tablet. 20 MG PO DAILY, #30 TAB Prov: DAVIDE SHAH DO 10/30/19 DAVIDE SHAH DO Oct 30, 2019 12:25
[2019-10-30 12:41] LABS: HEMATOCRIT 44 % (35-52); HEMOGLOBIN 14.5 G/DL (11.5-16.0); MEAN CORPUSCULAR HEMOGLOBIN 28 PG (25-34); MEAN CORPUSCULAR HGB CONC 33 G/DL (32-36); MEAN CORPUSCULAR VOLUME 85 FL (80-99); MEAN PLATELET VOLUME 9.9 FL (7.4-10.4); PLATELET COUNT 344 10^3/uL (130-400); RED CELL DISTRIBUTION WIDTH 13.2 % (10.0-14.5); WHITE BLOOD COUNT 10.8 10^3/uL (4.3-11.0)
[2019-10-30 12:42] LABS: BASOPHILS % (AUTO) 0 % (0-10); EOSINOPHILS # (AUTO) 0.3 10^3/uL (0.0-0.3); EOSINOPHILS % (AUTO) 2 % (0-10); LYMPHOCYTES # (AUTO) 2.1 X 10^3 (1.0-4.0); LYMPHOCYTES % (AUTO) 19 % (12-44); MONOCYTES # (AUTO) 0.8 X 10^3 (0.0-1.0); MONOCYTES % (AUTO) 7 % (0-12); NEUTROPHILS # (AUTO) 7.7 X 10^3 (1.8-7.8); NEUTROPHILS % (AUTO) 71 % (42-75)
--- NOTE | 2019-10-30 12:46 | Diagnostic Imaging Report ---
INDICATION: Chest pain. TIME OF EXAM: 12:29 p.m. COMPARISON: No prior studies are available for comparison. The heart size is normal. The pulmonary vascularity is unremarkable. The lungs are clear. No infiltrate, effusion or pneumothorax is detected. IMPRESSION: No acute cardiopulmonary process is detected. Dictated by: Dictated on workstation # [id number]
[2019-10-30 13:23] LABS: ALANINE AMINOTRANSFERASE 12 U/L (0-55); ALBUMIN 4.3 GM/DL (3.2-4.5); ALKALINE PHOSPHATASE 81 U/L (40-136); BILIRUBIN,TOTAL 0.2 MG/DL (0.1-1.0); BUN/CREATININE RATIO 14; CARBON DIOXIDE 22 MMOL/L (21-32); CHLORIDE 107 MMOL/L (98-107); CREATININE SERUM 0.83 MG/DL (0.60-1.30); GFR ESTIMATED > 60; GLUCOSE 93 MG/DL (70-105); POTASSIUM 4.7 MMOL/L (3.6-5.0); SODIUM 140 MMOL/L (135-145); TOTAL PROTEIN 7.1 GM/DL (6.4-8.2)
[2019-10-30] MEDS ORDERED: OMEP20TA33 PO (13:52)
[2019-10-30] MEDS ORDERED: fentaNYL INJECTION 100 MCG/2 ML AMP ONE (13:54)
[2019-10-30 14:00] VITALS: BP 106/78
[2019-10-30] MEDS ORDERED: fentaNYL INJECTION 100 MCG/2 ML AMP IVP ONE (14:00)
== END 2019-10-30 14:09 | disposition home or self-care (01) ==
LOC: EDUNIT# 11:12 → ER FS 11:13
DX: R07.9 Chest pain, unspecified (principal); F41.9 Anxiety disorder, unspecified; Z88.0 Allergy status to penicillin; Z88.5 Allergy status to narcotic agent; Z90.89 Acquired absence of other organs
CPT/HCPCS: 36415; 71045; 80053; 83880; 84484; 85025; 85379; 93005; 96374; 96375

== ENCOUNTER 2019-10-30 18:11 | Emergency (ER) | payer MEDICAID ==
[~2019-10-30] VITALS: Ht 165.1 cm; Wt 81.8 kg
[~2019-10-30 18:11] MED LIST changes: +OMEP20TA33 PO
--- NOTE | 2019-10-30 18:20 | ED Chest Pain ---
General Stated Complaint: CP Source: patient Exam Limitations: no limitations History of Present Illness Date Seen by Provider: Oct 30, 2019 Time Seen by Provider: 18:19 Initial Comments To ER by private vehicle with reports of left-sided chest pain that began at rest this morning at about 9 AM. She was seen for [facility] and given Ativan, GI cocktail, fentanyl, none of these things improved her pain. Labs were done, chest x-ray and EKG were done and she was discharged home. She states she received some epidural injections at L4-L5 fairly recently, her pain has been worsened since then. She reports that she feels like she has ice cubes on her at various locations on her upper extremities lower extremities and face. Timing/Duration: changing over time Severity/Quality: moderate Radiation: no radiation Activities at Onset: none Allergies and Home Medications Allergies Coded Allergies: Penicillins (Verified Allergy, Unknown, 07/23/19) tramadol (Verified Allergy, Unknown, 07/23/19) Home Medications Diclofenac Sodium 75 Mg Tablet.dr, 75 MG PO BID Prescribed by: GARTH ROLDAN on 07/23/19 0134 Omeprazole Magnesium 20 Mg Tablet.dr, 20 MG PO DAILY Prescribed by: DAVIDE SHAH on 10/30/19 1352 Patient Home Medication List Home Medication List Reviewed: Yes Review of Systems Review of Systems Constitutional: see HPI EENTM: No Symptoms Reported Respiratory: No Symptoms Reported; Denies Cough, Denies Orthopnea, Denies Shortness of Air Cardiovascular: See HPI, Chest Pain Gastrointestinal: See HPI Genitourinary: No Symptoms Reported Musculoskeletal: no symptoms reported Skin: no symptoms reported Psychiatric/Neurological: No Symptoms Reported Endocrine: No Symptoms Reported Past Fxfrhip-Ogooyz-Zmwchx Hx Patient Social History Type Used: Cigarettes 2nd Hand Smoke Exposure: No Recent Hopitalizations: No Seasonal Allergies Seasonal Allergies: No Past Medical History Surgeries: Yes (D&C) Section, Gallbladder, Tonsillectomy Respiratory: No Cardiac: No Neurological: No Female Reproductive Disorders: Ovarian Cyst HIV/AIDS: No Genitourinary: No Gastrointestinal: No Musculoskeletal: No Endocrine: Yes (Hypoglycemia) HEENT: No Cancer: No Psychosocial: No Blood Disorders: Yes (Anemia) Physical Exam Vital Signs Vital Signs - First Documented 10/30/19 18:11 Temp 36.7 Pulse 100 Resp 18 B/P (MAP) 178/97 (124) Pulse Ox 98 O2 Delivery Room Air Capillary Refill : Height, Weight, BMI Height: '" Weight: lbs. oz. kg; 29.00 BMI Method: General Appearance: No Apparent Distress, WD/WN, Anxious Neck: Full Range of Motion, Normal Inspection Respiratory: Lungs Clear, Normal Breath Sounds, No Accessory Muscle Use, No Respiratory Distress Cardiovascular: Regular Rate, Rhythm, Normal Peripheral Pulses Gastrointestinal: Normal Bowel Sounds, Non Tender, Soft Neurologic/Psychiatric: Alert, Oriented x3 Skin: Normal Color, Warm/Dry Progress/Results/Core Measures Results/Orders Lab Results Laboratory Tests Test 10/30/19 17:47 10/30/19 18:47 Range/Units White Blood Count 11.2 H 4.3-11.0 10^3/uL Red Blood Count 5.02 4.35-5.85 10^6/uL Hemoglobin 14.3 11.5-16.0 G/DL Hematocrit 42 35-52 % Mean Corpuscular Volume 85 80-99 FL Mean Corpuscular Hemoglobin 29 25-34 PG Mean Corpuscular Hemoglobin Concent 34 32-36 G/DL Red Cell Distribution Width 13.6 10.0-14.5 % Platelet Count 369 130-400 10^3/uL Mean Platelet Volume 10.1 7.4-10.4 FL Neutrophils (%) (Auto) 71 42-75 % Lymphocytes (%) (Auto) 23 12-44 % Monocytes (%) (Auto) 5 0-12 % Eosinophils (%) (Auto) 2 0-10 % Basophils (%) (Auto) 0 0-10 % Neutrophils # (Auto) 8.0 H 1.8-7.8 X 10^3 Lymphocytes # (Auto) 2.5 1.0-4.0 X 10^3 Monocytes # (Auto) 0.5 0.0-1.0 X 10^3 Eosinophils # (Auto) 0.2 0.0-0.3 10^3/uL Basophils # (Auto) 0.0 0.0-0.1 10^3/uL Troponin I < 0.028 <0.028 NG/ML C-Reactive Protein High Sensitivity 1.21 H 0.00-0.50 MG/DL Serum Test, Qualitative NEGATIVE NEGATIVE My Orders Orders - CONRAD ORANTES APRN Ketorolac Injection (Toradol Injection) (10/30/19 18:30) Ekg Tracing (10/30/19 18:18) Cbc With Automated Diff (10/30/19 18:18) Troponin I (10/30/19 18:18) Hs C Reactive Protein (10/30/19 18:47) Ct Angio Chest W (10/30/19 18:48) Hcg,Qualitative Serum (10/30/19 18:50) Iohexol Injection (Omnipaque 350 Mg/Ml 1 (10/30/19 19:15) Received Contrast (Hold Metformin- Contr (10/30/19 19:15) Ns (Ivpb) (Sodium Chloride 0.9% Ivpb Bag (10/30/19 19:15) Medications Given in ED Current Medications Medications Dose Ordered Sig/Magalie Route Start Time Stop Time Status Last Admin Dose Admin Iohexol 75 ml ONCE ONCE IV 10/30/19 19:15 10/30/19 19:16 DC 10/30/19 20:01 75 ML Ketorolac Tromethamine 15 mg ONCE ONCE IVP 10/30/19 18:30 10/30/19 18:31 DC 10/30/19 18:38 15 MG Sodium Chloride 100 ml ONCE ONCE IV 10/30/19 19:15 10/30/19 19:16 DC 10/30/19 20:01 100 ML Vital Signs/I&O 10/30/19 18:11 Temp 36.7 Pulse 100 Resp 18 B/P (MAP) 178/97 (124) Pulse Ox 98 O2 Delivery Room Air Departure Impression Primary Impression: Chest pain Qualified Codes: R07.9 - Chest pain, unspecified Disposition: HOME, SELF-CARE Condition: Stable Departure-Patient Inst. Decision time for Depature: 20:05 Referrals: [facility] (PCP) Primary Care Physician ALIVIA RODRIGUEZ APRN (Family) Primary Care Physician Patient Instructions: Chest Pain That Is Not Caused by the Heart (DC) Add. Discharge Instructions: 1. Use Tylenol and ibuprofen for pain control. Follow-up with your doctor later this week. CONRAD ORANTES APRN Oct 30, 2019 18:20
--- OUTSIDE RECORDS SUMMARY | 2019-10-30 18:21 | XMS REPORT | Continuity of Care Document ---
Author Organization Unknown Address Unknown Phone Unavailable Allergies Active Description Code Type Severity Reaction Onset Reported/Identified Relationship to Patient Clinical Status Yes Penicillins [id number] Drug Aller gy Unknown N/A 07/23/2019 Yes tramadol [id number] Drug Allergy Unknown N/A 07/23/2019 Medications There [...] NARCOTIC AGENT STATUS 08/09/2019 O'DELL, ALIVIA K IP ARCHITECT Ot G89.29 OTHER CHRONIC PAIN 08/09/2019 O'DELL, ALIVIA K IP ARCHITECT Ot M54.41 LUMBAGO WITH SCIATICA, RIGHT SIDE 08/09/2019 O'DELL, ALIVIA K IP ARCHITECT Ot M54.42 LUMBAGO WITH SCIATICA, LEFT SIDE 08/11/2019 O'DELL, ALIVIA K IP ARCHITECT Ot G89.29 OTHER CHRONIC PAIN 08/11/2019 O'DELL, ALIVIA K IP ARCHITECT Ot M54.41 LUMBAGO WITH SCIATICA, RIGHT SIDE 08/11/2019 O'DELL, ALIVIA K IP ARCHITECT Ot M54.42 LUMBAGO WITH SCIATICA, LEFT SIDE 08/12/2019 O'DELL, ALIVIA K IP ARCHITECT Ot G89.29 OTHER CHRONIC PAIN 08/12/2019 O'DELL, ALIVIA K IP ARCHITECT Ot M54.41 LUMBAGO WITH SCIATICA, RIGHT SIDE 08/12/2019 O'DELL, ALIVIA K IP ARCHITECT Ot M54.42 LUMBAGO WITH SCIATICA, LEFT SIDE 08/12/2019 O'DELL, ALIVIA K IP ARCHITECT Ot G89.29 OTHER CHRONIC PAIN 08/12/2019 O'DELL, ALIVIA K IP ARCHITECT Ot M54.41 LUMBAGO WITH SCIATICA, RIGHT SIDE 08/12/2019 O'DELL, ALIVIA K IP ARCHITECT Ot M54.42 LUMBAGO WITH SCIATICA, LEFT SIDE 08/12/2019 O'DELL, ALIVIA K IP ARCHITECT Ot G89.29 OTHER CHRONIC PAIN 08/12/2019 O'DELL, ALIVIA K IP ARCHITECT Ot M54.41 LUMBAGO WITH SCIATICA, RIGHT SIDE 08/12/2019 O'DELL, ALIVIA K IP ARCHITECT Ot M54.42 LUMBAGO WITH SCIATICA, LEFT SIDE 08/13/2019 O'DELL, ALIVIA K IP ARCHITECT Ot G89.29 OTHER CHRONIC PAIN 08/13/2019 O'DELL, ALIVIA K IP ARCHITECT Ot M54.41 LUMBAGO WITH SCIATICA, RIGHT SIDE 08/13/2019 O'DELL, ALIVIA K IP ARCHITECT Ot M54.42 LUMBAGO WITH SCIATICA, LEFT SIDE 08/14/2019 O'DELL, ALIVIA K IP ARCHITECT Ot G89.29 OTHER CHRONIC PAIN 08/14/2019 O'DELL, ALIVIA K IP ARCHITECT Ot M54.41 LUMBAGO WITH SCIATICA, RIGHT SIDE 08/14/2019 O'DELL, ALIVIA K IP ARCHITECT Ot M54.42 LUMBAGO WITH SCIATICA, LEFT SIDE 08/21/2019 O'DELL, ALIVIA K IP ARCHITECT Ot G89.29 OTHER CHRONIC PAIN 08/21/2019 O'DELL, ALIVIA K IP ARCHITECT Ot M54.41 LUMBAGO WITH SCIATICA, RIGHT SIDE 08/21/2019 O'DELL, ALIVIA K IP ARCHITECT Ot M54.42 LUMBAGO WITH SCIATICA, LEFT SIDE 08/23/2019 O'DELL, ALIVIA K IP ARCHITECT Ot G89.29 OTHER CHRONIC PAIN 08/23/2019 O'DELL, ALIVIA K IP ARCHITECT Ot M54.41 LUMBAGO WITH SCIATICA, RIGHT SIDE 08/23/2019 O'DELL, ALIVIA K IP ARCHITECT Ot M54.42 LUMBAGO WITH SCIATICA, LEFT SIDE 08/23/2019 O'DELL, ALIVIA K IP ARCHITECT Ot G89.29 OTHER CHRONIC PAIN 08/23/2019 O'DELL, ALIVIA K IP ARCHITECT Ot M54.41 LUMBAGO WITH SCIATICA, RIGHT SIDE 08/23/2019 O'DELL, ALIVIA K IP ARCHITECT Ot M54.42 LUMBAGO WITH SCIATICA, LEFT SIDE 08/25/2019 O'DELL, ALIVIA K IP ARCHITECT Ot G89.29 OTHER CHRONIC PAIN 08/25/2019 O'DELL, ALIVIA K IP ARCHITECT Ot M54.41 LUMBAGO WITH SCIATICA, RIGHT SIDE 08/25/2019 O'DELL, ALIVAI K IP ARCHITECT Ot M54.42 LUMBAGO WITH SCIATICA, LEFT SIDE [...] (TISSUE PAHOLOGY) - 01/13 16:28 A SOURCE [facility] A GROSS DESCRIPTION [facility] A DIAGNOSIS [facility] CLINICAL INFORMATION [facility] PATHOLOGIST [facility] HCG, QUANTITATIVE - 09/12/19 10:19 HCG, TOTAL, QN NRG HCG, QUANTITATIVE - 09/12/19 11:23 HCG, TOTAL, QN <3 mIU/mL NRG Complete blood count (CBC) with automate d white blood cell (WBC) differential - 10/30/19 12:29 Blood leukocytes automated count (number/volume) 10.8 10*3/uL 4.3-11.0 Blood erythrocytes automated count (number/volume) 5.16 10*6/uL 4.35-5.85 Venous blood hemoglobin measurement (mass/volume) 14.5 g/dL 11.5-16.0 Blood hematocrit (volume fraction) 44 % 35-52 Automated erythrocyte mean corpuscular volume 85 [ foz_us] 80-99 Automated erythrocyte mean corpuscular h emoglobin (mass per erythrocyte) 28 pg 25-34 Automated erythrocyte mean corpuscular h emoglobin concentration measurement (mass/volume) 33 g/dL 32-36 Automated erythrocyte distribution width ratio 13. 2 % 10.0- 14.5 Automated blood platelet count (count/volume) 344 10*3/uL 130-400 Automated blood platelet mean volume measurement 9.9 [foz_us] 7.4-10.4 Automated blood neutrophils/100 leukocytes 71 % 42-75 Automated blood lymphocytes/100 leukocytes 19 % 12-44 Blood monocytes/100 leukocytes 7 % 0-12 Automated blood eosinophils/100 leukocytes 2 % 0-10 Automated blood basophils/100 leukocytes 0 % 0-10 Blood neutrophils automated count (number/volume) 7.7 10*3 1.8-7.8 Blood lymphocytes automated count (number/volume) 2.1 10*3 1.0-4.0 Blood monocytes automated count (number/volume) 0. 8 10*3 0.0-1.0 Automated eosinophil count 0.3 10*3/uL 0 .0-0.3 Automated blood basophil count (count/volume) 0.0 10*3/uL 0.0-0.1 Comprehensive metabolic panel - 10/30/19 12:29 Serum or plasma sodium measurement (moles/volume) 140 mmol/L 135-145 Serum or plasma potassium measurement (moles/volume) 4.7 mmol/L 3.6-5.0 Serum or plasma chloride measurement (moles/volume) 107 mmol/L 98-107 Carbon dioxide 22 mmol/L 21-32 Serum or plasma anion gap determination (moles/volume) 11 mmol/L 5-14 Serum or plasma urea nitrogen measurement (mass/volume ) 12 mg/dL 7-18 Serum or plasma creatinine measurement (mass/volume) 0.83 mg/dL 0.60-1.30 Serum or plasma urea nitrogen/creatinine mass ratio 14 NRG Serum or plasma creatinine measurement w ith calculation of estimated glomerular filtration rate > NRG Serum or plasma glucose measurement (mass/volume) 93 mg/dL 70-105 Serum or plasma calcium measurement (mass/volume) 10.0 mg/dL 8.5-10.1 Serum or plasma total bilirubin measurement (mass/volu me) 0.2 mg/dL 0.1-1.0 Serum or plasma alkaline phosphatase julian surement (enzymatic activity/volume) 81 U/L 40-136 Serum or plasma aspartate aminotransfera se measurement (enzymatic activity/volume) 12 U/L 5-34 Serum or plasma alanine aminotransferase measurement (enzymatic activity/volume) 12 U/L 0-55 Serum or plasma protein measurement (mass/volume) 7.1 g/dL 6.4-8.2 Serum or plasma albumin measurement (mass/volume) 4.3 g/dL 3.2-4.5 CALCIUM CORRECTED 9.8 mg/dL 8.5-10.1 TROPONIN I FS - 10/30/19 12:29 TROPONIN I FS < 0.30 <0.30 PROBNP FS - 10/30/19 12:29 PROBNP FS 12.4 pg/mL <75.0 Fibrin D-dimer FEU measurement in platel et poor plasma (mass/volume) - 10/30/19 12:29 Fibrin D-dimer FEU measurement in platelet poor plasma (mass/volume) 0.14 ug/mL 0.00-0.49 Encounters ACCT No. Visit Date/Time Discharge Status Pt. Type Provider Facility Loc./Unit Complaint [id number] 09/12/2019 09:20:00 09/12/2019 23:59: 59 [facility] Outpatient ALIVIA CHAIREZ [facility] [id number] 09/12/2019 10:19:00 Document Registration [id number] 09/12/2019 09:20:00 Document Registration [id number] 09/04/2019 15:30:00 Document Registration [id number] 08/21/2019 10:00:00 Document Registration [id number] 08/08/2019 10:00:00 Document Registration [id number] 10/30/2019 11:13:00 14:09:00 DIS Emergency DAVIDE SHAH DO [facility] ER FS SOB; CHEST PAIN [id number] 08/28/2019 11:48:00 23:59:59 CLS Outpatient KAMILLE COOPER [facility] RAD BACK PAIN [id number] 08/08/2019 10:57:00 23:59:59 CLS Outpatient ALIVIA RODRIGUEZ APRN [facility] RAD FS LUMBAGO WITH SCIATICA L RT SIDE,OTHER CHRONIC PA [id number] 07/23/2019 13:25:00 16:08:00 DIS Emergency GARTH ROLDAN MD [facility] ER FS SYNCOPE; SUPRAPUBIC SELINA N [id number] 10/30/2019 18:12:[address] Emergency CONRAD ORANTES APRN [facility] ER CP
[2019-10-30 18:24] LABS: BASOPHILS % (AUTO) 0 % (0-10); EOSINOPHILS # (AUTO) 0.2 10^3/uL (0.0-0.3); EOSINOPHILS % (AUTO) 2 % (0-10); HEMATOCRIT 42 % (35-52); HEMOGLOBIN 14.3 G/DL (11.5-16.0); LYMPHOCYTES # (AUTO) 2.5 X 10^3 (1.0-4.0); LYMPHOCYTES % (AUTO) 23 % (12-44); MEAN CORPUSCULAR HEMOGLOBIN 29 PG (25-34); MEAN CORPUSCULAR HGB CONC 34 G/DL (32-36); MEAN CORPUSCULAR VOLUME 85 FL (80-99); MEAN PLATELET VOLUME 10.1 FL (7.4-10.4); MONOCYTES # (AUTO) 0.5 X 10^3 (0.0-1.0); MONOCYTES % (AUTO) 5 % (0-12); NEUTROPHILS % (AUTO) 71 % (42-75); PLATELET COUNT 369 10^3/uL (130-400); RED CELL DISTRIBUTION WIDTH 13.6 % (10.0-14.5); WHITE BLOOD COUNT 11.2 10^3/uL (4.3-11.0)
[2019-10-30] MEDS ORDERED: KETOROLAC 30 MG/ML VIAL IVP ONE (18:30)
[2019-10-30] MEDS ORDERED: IOHEXOL 350 MG/ML 100 ML (OMNIPAQUE 350) VIAL IV ONE (19:15)
[2019-10-30] MEDS ORDERED: NS 100 ML (IVPB) BAG IV ONE (19:15)
[2019-10-30] MEDS ORDERED: HOLD METFORMIN - RECEIVED CONTRAST 20 ML VIAL IV SCH (19:15)
--- NOTE | 2019-10-30 20:10 | Diagnostic Imaging Report ---
INDICATION: Left-sided chest pain and difficulty breathing. TECHNIQUE: Multiple contiguous axial images were obtained through the chest after uneventful bolus administration of intravenous contrast. 3D reconstructed CTA MIP acquisitions were also performed. Auto Exposure Controls were utilized during the CT exam to meet ALARA standards for radiation dose reduction. COMPARISON: There is no previous study for comparison. FINDINGS: The thoracic aortic arch and great vessel origins are patent. There is no evidence of aortic dissection or aneurysm. Pulmonary parenchymal vessels are well-opacified with no CT evidence of pulmonary emboli. There is no pleural or pericardial fluid. There is no mediastinal or hilar adenopathy. Lung parenchymal windows demonstrated some dependent atelectatic changes in the lung bases. There is no pulmonary parenchymal consolidation. Bony windows are unremarkable. IMPRESSION: Negative CTA of the chest. Dictated by: Dictated on workstation # [id number]
[2019-10-30 20:20] VITALS: BP 111/65
== END 2019-10-30 20:20 | disposition home or self-care (01) ==
LOC: EDUNIT# 18:11 → ER 18:12
DX: R07.9 Chest pain, unspecified (principal); Z88.0 Allergy status to penicillin; Z88.6 Allergy status to analgesic agent
CPT/HCPCS: 36415; 71275; 84484; 84703; 85025; 86141; 93005; 96374

== ENCOUNTER → 2020-03-17 | Outpatient (CLI) | payer MEDICAID ==
--- NOTE | 2020-03-17 10:54 | Diagnostic Imaging Report ---
INDICATION: Left foot pain AP and oblique and lateral views left foot are obtained. No fracture or acute bony abnormality is seen. Joint spaces appear unremarkable. IMPRESSION: Negative left foot. Dictated by: Dictated on workstation # [id number]
== END ==
LOC: RAD FS 10:29
PROVIDERS: ATTEND Nurse Practitioner Family
DX: S99.922D Unspecified injury of left foot, subsequent encounter (principal)
CPT/HCPCS: 73630

== ENCOUNTER 2020-03-29 | Emergency (ER) | payer MEDICAID ==
[~2020-03-29] VITALS: Ht 165.1 cm; Wt 81.3 kg
[2020-03-29 00:14] LABS: HCG,QUALITATIVE URINE NEGATIVE (NEGATIVE)
[2020-03-29 00:21] LABS: BACTERIA,URINE FEW /HPF; BILIRUBIN,URINE NEGATIVE (NEGATIVE); CLARITY,URINE CLEAR; COLOR,URINE STRAW; GLUCOSE, URINE (UA) NEGATIVE (NEGATIVE); KETONES,URINE NEGATIVE (NEGATIVE); LEUKOCYTE ESTERASE ,URINE NEGATIVE (NEGATIVE); NITRITE,URINE NEGATIVE (NEGATIVE); PROTEIN,URINE NEGATIVE (NEGATIVE); RBC,URINE RARE /HPF
--- NOTE | 2020-03-29 00:25 | ED Psychosocial ---
General Chief Complaint: Suicidal Ideation Risk Stated Complaint: MEANTAL HEALTH SCREEN Source: patient, police History of Present Illness Date Seen by Provider: Mar 29, 2020 Time Seen by Provider: 00:04 Initial Comments 30 yo female presents with law enforcement having complaints of suicidal ideation and depression. She had been drinking some beer and a marc earlier this evening and got in an argument with her boyfriend. She stated that he has cheated on her multiple times and continues to do so. She does have 2 small children and they are with her mother. She had "wanted the pain to stop" so she had got a shot gun from the house and was going to kill herself until she thought about her 2 small children. After that she change her mind and said that she didn't want to kill herself shot, but she still "wants the pain to stop". She denies any previous suicide attempts but states she has taken her medicine to help her sleep and to try and stop the pain in the past. She is very tearful and upset. She denies being suicidal currently because she was speaking about her small children, but she also still "wants the pain to stop" and will not elaborate on that. Allergies and Home Medications Allergies Coded Allergies: Penicillins (Verified Allergy, Unknown, 07/23/19) tramadol (Verified Allergy, Unknown, 07/23/19) Home Medications Diclofenac Sodium 75 Mg Tablet.dr, 75 MG PO BID Prescribed by: GARTH ROLDAN on 07/23/19 4375 Omeprazole Magnesium 20 Mg Tablet.dr, 20 MG PO DAILY Prescribed by: DAVIDE SHAH on 10/30/19 1352 Patient Home Medication List Home Medication List Reviewed: Yes Review of Systems Constitutional: No chills, No fever EENTM: no symptoms reported Respiratory: no symptoms reported Cardiovascular: no symptoms reported Gastrointestinal: no symptoms reported Genitourinary: no symptoms reported Musculoskeletal: other (left foot in a walking boot due to injury from 2 weeks ago) Skin: no symptoms reported Psychiatric/Neurological: See HPI, Anxiety, Depressed, Emotional Problems (david cidal) Past Copmlsb-Btlkit-Mbkloz Hx Past Med/Social Hx: Reviewed Nursing Past Med/Soc Hx Patient Social History Type Used: Cigarettes 2nd Hand Smoke Exposure: No Recent Foreign Travel: No Contact w/Someone Who Travel: No Recent Hopitalizations: No Seasonal Allergies Seasonal Allergies: No Past Medical History Surgeries: Yes (D&C) Section, Gallbladder, Tonsillectomy Respiratory: No Cardiac: No Neurological: No Female Reproductive Disorders: Ovarian Cyst HIV/AIDS: No Genitourinary: No Gastrointestinal: No Musculoskeletal: No Endocrine: Yes (Hypoglycemia) HEENT: No Cancer: No Psychosocial: No Blood Disorders: Yes (Anemia) Physical Exam Vital Signs - First Documented 03/29/20 00:06 Temp 37.1 Pulse 124 Resp 22 B/P (MAP) 135/97 (110) Pulse Ox 98 O2 Delivery Room Air Capillary Refill : Height, Weight, BMI Height: '" Weight: lbs. oz. kg; 30.00 BMI Method: General Appearance: moderate distress, other (tearful and disheveled appearance) HEENT: PERRL/EOMI, pharynx normal Neck: non-tender, supple, normal inspection Respiratory: chest non-tender, lungs clear, normal breath sounds, no r espiratory distress, no accessory muscle use Cardiovascular: normal peripheral pulses, regular rate, rhythm Gastrointestinal: normal bowel sounds, non tender, soft, no pulsatile mass Extremities: normal range of motion, normal capillary refill Neurologic/Psychiatric: alert, oriented x 3, other (anxious and depressed mood and frequently tearful) Appearance/Memory: disheveled Behavior/Eye Contact: cooperative, avoids eye contact Thoughts/Hallucinations: normal thought pattern Skin: normal color, warm/dry Progress/Results/Core Measures Results/Orders Lab Results Laboratory Tests Test 03/29/20 00:06 03/29/20 00:17 Range/Units Urine Color STRAW Urine Clarity CLEAR Urine pH 6.0 5-9 Urine Specific [place] <=1.005 1.016-1.022 Urine Protein NEGATIVE NEGATIVE Urine Glucose (UA) NEGATIVE NEGATIVE Urine Ketones NEGATIVE NEGATIVE Urine Nitrite NEGATIVE NEGATIVE Urine Bilirubin NEGATIVE NEGATIVE Urine Urobilinogen 0.2 < = 1.0 MG/DL Urine Leukocyte Esterase NEGATIVE NEGATIVE Urine RBC (Auto) TRACE-I NEGATIVE Urine RBC RARE /HPF Urine WBC NONE /HPF Urine Squamous Epithelial Cells 5-10 /HPF Urine Crystals NONE /LPF Urine Bacteria FEW H /HPF Urine Casts NONE /LPF Urine Mucus NEGATIVE /LPF Urine Culture Indicated YES Urine Test NEGATIVE NEGATIVE Urine Opiates Screen NEGATIVE NEGATIVE Urine Oxycodone Screen NEGATIVE NEGATIVE Urine Methadone Screen NEGATIVE NEGATIVE Urine Propoxyphene Screen NEGATIVE NEGATIVE Urine Barbiturates Screen NEGATIVE NEGATIVE Ur Tricyclic Antidepressants Screen NEGATIVE NEGATIVE Urine Phencyclidine Screen NEGATIVE NEGATIVE Urine Amphetamines Screen NEGATIVE NEGATIVE Urine Methamphetamines Screen NEGATIVE NEGATIVE Urine Benzodiazepines Screen NEGATIVE NEGATIVE Urine Cocaine Screen NEGATIVE NEGATIVE Urine Cannabinoids Screen NEGATIVE NEGATIVE White Blood Count 16.2 H 4.3-11.0 10^3/uL Red Blood Count 5.21 4.35-5.85 10^6/uL Hemoglobin 14.9 11.5-16.0 G/DL Hematocrit 45 35-52 % Mean Corpuscular Volume 86 80-99 FL Mean Corpuscular Hemoglobin 29 25-34 PG Mean Corpuscular Hemoglobin Concent 33 32-36 G/DL Red Cell Distribution Width 12.9 10.0-14.5 % Platelet Count 326 130-400 10^3/uL Mean Platelet Volume 10.4 7.4-10.4 FL Immature Granulocyte % (Auto) 0 % Neutrophils (%) (Auto) 81 H 42-75 % Lymphocytes (%) (Auto) 12 12-44 % Monocytes (%) (Auto) 5 0-12 % Eosinophils (%) (Auto) 2 0-10 % Basophils (%) (Auto) 0 0-10 % Neutrophils # (Auto) 13.0 H 1.8-7.8 X 10^3 Lymphocytes # (Auto) 1.9 1.0-4.0 X 10^3 Monocytes # (Auto) 0.9 0.0-1.0 X 10^3 Eosinophils # (Auto) 0.2 0.0-0.3 10^3/uL Basophils # (Auto) 0.1 0.0-0.1 10^3/uL Immature Granulocyte # (Auto) 0.0 0.0-0.1 10^3/uL Neutrophils % (Manual) 84 % Lymphocytes % (Manual) 9 % Monocytes % (Manual) 6 % Eosinophils % (Manual) 1 % Sodium Level 139 135-145 MMOL/L Potassium Level 4.0 3.6-5.0 MMOL/L Chloride Level 107 98-107 MMOL/L Carbon Dioxide Level 19 L 21-32 MMOL/L Anion Gap 13 5-14 MMOL/L Blood Urea Nitrogen 12 7-18 MG/DL Creatinine 0.58 L 0.60-1.30 MG/DL Estimat Glomerular Filtration Rate > 60 BUN/Creatinine Ratio 21 Glucose Level 106 H 70-105 MG/DL Calcium Level 9.6 8.5-10.1 MG/DL Corrected Calcium 8.5-10.1 MG/DL Total Bilirubin < 0.2 0.1-1.0 MG/DL Aspartate Amino Transf (AST/SGOT) 18 5-34 U/L Alanine Aminotransferase (ALT/SGPT) 18 0-55 U/L Alkaline Phosphatase 80 40-136 U/L Total Protein 7.6 6.4-8.2 GM/DL Albumin 4.8 H 3.2-4.5 GM/DL Salicylates Level < 0.3 L 5.0-20.0 MG/DL Acetaminophen Level < 10 L 10-30 UG/ML Serum Alcohol 58 H <10 MG/DL My Orders Orders - MARIANELA GORDON MD Ua Culture If Indicated (03/29/20 00:06) Cbc With Automated Diff (03/29/20 00:06) Comprehensive Metabolic Panel (03/29/20 00:06) Alcohol (03/29/20 00:06) Drug Screen Stat (Urine) (03/29/20 00:06) Acetaminophen (03/29/20 00:06) Salicylate (03/29/20 00:06) Ekg Tracing (03/29/20 00:06) Hcg,Qualitative Urine (03/29/20 00:06) Bh Status Checks/Observation Q15M (03/29/20 00:06) Urine Culture (03/29/20 00:06) Manual Differential (03/29/20 00:17) Vital Signs/I&O 03/29/20 03/29/20 00:06 02:37 Temp 37.1 37.1 Pulse 124 92 Resp 22 16 B/P (MAP) 135/97 (110) 126/86 (110) Pulse Ox 98 99 O2 Delivery Room Air Room Air Progress Progress Note #1: Progress Note obtain labs and urine to medically clear patient so she could be screened by mental health. ECG does not show any acute significant abnormality. Progress Note #2: Time: 00:53 Progress Note Labs are stable without acute significant abnormality to account for her depression and suicidal ideation other than mild alcohol intoxication with level of 58. UDS negative. CBC with elevated WBC count but this may be stress related as she has no fever or source for infection. Medically she is clear and stable to have mental health screening and determine disposition. Progress Note #3: Time: 02:14 Progress Note Mental health did a telehealth screening and devised a safety plan with pt and her family. Discharge to home to have outpatient follow up Initial ECG Impression Date: Mar 29, 2020 Initial ECG Impression Time: 00:24 Initial ECG Rate: 99 Initial ECG Rhythm: Normal Sinus Initial ECG Comparisson: Unchanged Comment sinus rhythm with a heart rate of 99 bpm. SD interval 136 ms. QT interval 324 ms with a QTc interval 416 ms. There is no acute ST elevation. She has no significant change from prior tracings in the system. Departure Impression Primary Impression: Situational depression Additional Impressions: Alcohol intoxication Qualified Codes: F10.920 - Alcohol use, unspecified with intoxication, uncomplicated Depression with suicidal ideation Disposition: HOME, SELF-CARE Condition: Stable Departure-Patient Inst. Decision time for Depature: 02:20 Referrals: [facility] (PCP) Primary Care Physician ALIVIA RODRIGUEZ APRN (Family) Primary Care Physician Patient Instructions: OUTPT MENTAL HEALTH SERVICES, Depression, Adult ED, Alcohol Intoxication ED, Adjustment Disorder Add. Discharge Instructions: Follow the safety plan from Mental Health All discharge instructions reviewed with patient and/or family. Voiced understanding. MARIANELA GORDON MD Mar 29, 2020 00:25
[2020-03-29 00:26] LABS: AMPHETAMINE SCREEN, URINE NEGATIVE (NEGATIVE); BARBITURATE SCREEN URINE NEGATIVE (NEGATIVE); BENZODIAZEPINES SCREEN URINE NEGATIVE (NEGATIVE); CANNABINOID SCREEN, URINE NEGATIVE (NEGATIVE); COCAINE SCREEN URINE NEGATIVE (NEGATIVE); METHADONE STAT NEGATIVE (NEGATIVE); METHAMPHETAMINE SCREEN URINE S NEGATIVE (NEGATIVE); OPIATE SCREEN URINE NEGATIVE (NEGATIVE); OXYCODONE STAT NEGATIVE (NEGATIVE); PROPOXYPHENE STAT NEGATIVE (NEGATIVE); TRICYCLIC ANTIDEPRESSANTS SCRE NEGATIVE (NEGATIVE)
[2020-03-29 00:27] LABS: BASOPHILS % (AUTO) 0 % (0-10); EOSINOPHILS % (AUTO) 2 % (0-10); HEMATOCRIT 45 % (35-52); HEMOGLOBIN 14.9 G/DL (11.5-16.0); LYMPHOCYTES # (AUTO) 1.9 X 10^3 (1.0-4.0); LYMPHOCYTES % (AUTO) 12 % (12-44); MEAN CORPUSCULAR HEMOGLOBIN 29 PG (25-34); MEAN CORPUSCULAR HGB CONC 33 G/DL (32-36); MEAN CORPUSCULAR VOLUME 86 FL (80-99); MEAN PLATELET VOLUME 10.4 FL (7.4-10.4); MONOCYTES % (AUTO) 5 % (0-12); NEUTROPHILS % (AUTO) 81 % (42-75); PLATELET COUNT 326 10^3/uL (130-400); WHITE BLOOD COUNT 16.2 10^3/uL (4.3-11.0)
[2020-03-29 00:28] LABS: BASOPHILS # (AUTO) 0.1 10^3/uL (0.0-0.1); EOSINOPHILS # (AUTO) 0.2 10^3/uL (0.0-0.3); MONOCYTES # (AUTO) 0.9 X 10^3 (0.0-1.0)
[2020-03-29 00:46] LABS: ALANINE AMINOTRANSFERASE 18 U/L (0-55); ALKALINE PHOSPHATASE 80 U/L (40-136); BILIRUBIN,TOTAL < 0.2 MG/DL (0.1-1.0); BUN/CREATININE RATIO 21; CALCIUM 9.6 MG/DL (8.5-10.1); CARBON DIOXIDE 19 MMOL/L (21-32); CHLORIDE 107 MMOL/L (98-107); CREATININE SERUM 0.58 MG/DL (0.60-1.30); GFR ESTIMATED > 60; GLUCOSE 106 MG/DL (70-105); SODIUM 139 MMOL/L (135-145)
[2020-03-29 00:47] LABS: ACETAMINOPHEN < 10 UG/ML (10-30); ALBUMIN 4.8 GM/DL (3.2-4.5); SALICYLATE < 0.3 MG/DL (5.0-20.0); TOTAL PROTEIN 7.6 GM/DL (6.4-8.2)
[2020-03-29 00:51] LABS: EOSINOPHILS % (MANUAL) 1 %; LYMPHOCYTES % (MANUAL) 9 %; MONOCYTES % (MANUAL) 6 %; NEUTROPHILS % (MANUAL) 84 %
--- NOTE | 2020-03-29 01:03 | NUR ---
[facility] SANTOYO contacted. Tracking number [id number].
--- NOTE | 2020-03-29 02:01 | NUR ---
Patient doing screen via laptop with [facility].
[2020-03-29 02:37] VITALS: BP 126/86
== END 2020-03-29 03:17 | disposition home or self-care (01) ==
LOC: EDUNIT# → ER FS 00:03
DX: F32.9 Major depressive disorder, single episode, unspecified (principal); F10.129 Alcohol abuse with intoxication, unspecified; R45.851 Suicidal ideations; F41.9 Anxiety disorder, unspecified; Z88.0 Allergy status to penicillin; Z88.5 Allergy status to narcotic agent
CPT/HCPCS: 36415; 80053; 80306; 81000; 84703; 85007; 85027; 87088; 93005; 99283; G0480 ×3; 80320; 80329

== ENCOUNTER 2020-08-21 10:57 | Outpatient (CLI) | payer MEDICAID ==
[~2020-08-21] VITALS: Ht 65 cm; Wt 84.2 kg
[2020-08-21 11:15] VITALS: BP 123/84
[2020-08-21 11:16] VITALS: BP 123/84
[2020-08-21 11:48] LABS: BILIRUBIN,URINE NEGATIVE (NEGATIVE); CLARITY,URINE SL CLOUDY; COLOR,URINE ORANGE; GLUCOSE, URINE (UA) NEGATIVE (NEGATIVE); KETONES,URINE NEGATIVE (NEGATIVE); LEUKOCYTE ESTERASE ,URINE NEGATIVE (NEGATIVE); NITRITE,URINE NEGATIVE (NEGATIVE); PH,URINE 6.5 (5-9); PROTEIN,URINE TRACE (NEGATIVE)
[2020-08-21 11:58] LABS: BACTERIA,URINE MODERATE /HPF
[2020-08-21] MEDS ORDERED: ACETAMINOPHEN 500 MG TAB (TYLENOL) PO ONE (13:30)
[2020-08-21] MEDS ORDERED: LACTATED RINGERS 1,000 ML IV SCH (13:30)
--- NOTE | 2020-08-21 13:39 | Diagnostic Imaging Report ---
INDICATION: Left pelvic pain. Fetus in transverse presentation with the head on the maternal right. heart motion was noted at a rate of 160 BPM was recorded. There are no obvious abnormalities identified but a complete survey was not performed. The placenta is along the right fundal aspect of the uterus. There is no previa. The amniotic fluid volume is within normal limits. The growth parameters are fairly uniform. Neither ovary could be identified. There is no pelvic mass or free fluid collection noted. TECHNIQUE: Multiple real-time grayscale images were obtained over the gravid uterus. COMPARISON: None FINDINGS: There are no prior studies available for comparison. Biometrical measurements are as follows: Biparietal 5.64 cm, age 20 weeks 1 days. Head circumference 16.90 cm, age 19 weeks 4 days. Abdominal circumference 14.64 cm, age 20 weeks 0 days. Femur length 3.21 cm, age 20 weeks 0 days. Sonographic estimate age: 20 weeks 0 days. Sonographic estimated date of delivery: 01/08/21. Estimated Weight: 321 gm (+/- 47 gm). LMP percentile: 33%. heart rate: 160 beats per minute. number: 1 of 1. IMPRESSION: 1. There is a single live fetus of approximately 20 weeks gestation +/- 1.5 weeks. EDC is 01/08/2021. 2. There are no abnormalities identified but a complete survey was not performed. Reportedly complete survey is pending. 3. growth parameters are fairly uniform. 4. The ovaries could not be identified but there is no acute pelvic abnormality evident. Dictated by: Dictated on workstation # [id number]
[2020-08-21 14:15] LABS: BASOPHILS % (AUTO) 0 % (0-10); EOSINOPHILS # (AUTO) 0.2 10^3/uL (0.0-0.3); EOSINOPHILS % (AUTO) 2 % (0-10); HEMATOCRIT 38 % (35-52); HEMOGLOBIN 12.8 g/dL (11.5-16.0); LYMPHOCYTES # (AUTO) 2.1 10^3/uL (1.0-4.0); LYMPHOCYTES % (AUTO) 18 % (12-44); MEAN CORPUSCULAR HEMOGLOBIN 29 pg (25-34); MEAN CORPUSCULAR HGB CONC 34 g/dL (32-36); MEAN CORPUSCULAR VOLUME 88 fL (80-99); MEAN PLATELET VOLUME 10.1 fL (9.0-12.2); MONOCYTES # (AUTO) 0.6 10^3/uL (0.0-1.0); MONOCYTES % (AUTO) 5 % (0-12); NEUTROPHILS % (AUTO) 75 % (42-75); PLATELET COUNT 274 10^3/uL (130-400)
[2020-08-21 14:25] VITALS: BP 103/56
[2020-08-21 14:37] LABS: ALANINE AMINOTRANSFERASE 20 U/L (0-55); ALBUMIN 3.5 GM/DL (3.2-4.5); ALKALINE PHOSPHATASE 56 U/L (40-136); BILIRUBIN,TOTAL 0.2 MG/DL (0.1-1.0); BUN/CREATININE RATIO 11; CALCIUM 8.9 MG/DL (8.5-10.1); CARBON DIOXIDE 23 MMOL/L (21-32); CHLORIDE 107 MMOL/L (98-107); CREATININE SERUM 0.57 MG/DL (0.60-1.30); GFR ESTIMATED > 60; GLUCOSE 78 MG/DL (70-105); SODIUM 135 MMOL/L (135-145)
== END 2020-08-21 15:10 | disposition home or self-care (01) ==
LOC: WSo 10:57 → LDRP 11:00 → WSo 15:10
PROVIDERS: ATTEND Family Medicine
DX: O26.892 Other specified pregnancy related conditions, second trimester (principal); Z3A.00 Weeks of gestation of pregnancy not specified
CPT/HCPCS: 76805; 80053; 81000; 85025; 87088; 87491; 87591; 96360; G0463; 36415; 99213

== ENCOUNTER 2022-01-31 15:06 | Emergency (ER) | payer MEDICAID ==
--- NOTE | 2022-01-31 15:49 | ED EENT ---
History of Present Illness General Chief Complaint: Ear Problems Stated Complaint: EAR PAIN Nursing Triage Note: PT REPORTS LEFT EAR PAIN THAT IS "SHOOTING INTO HER BRAIN". REPORTS SOME BLURRED VISION IN LEFT EYE WELL. Source: patient Exam Limitations: no limitations History of Present Illness Date Seen by Provider: Jan 31, 2022 Time Seen by Provider: 15:00 Initial Comments Patient is a 31-year-old female presents with sharp shooting pain to her left ear, and left facial paresthesias and skin tenderness. Symptoms began this morning and are worse with light touch and blinking. Pain is rated moderate to severe. Denies headache, tinnitus, loss of taste or smell. No other symptoms or complaints. Timing/Duration: abrupt Severity: moderate Location: other Prearrival Treatment: other Modifying Factors: Improves With Other Associated Symptoms: other Allergies and Home Medications Allergies Coded Allergies: Penicillins (Verified Allergy, Unknown, 07/23/19) tramadol (Verified Allergy, Unknown, 07/23/19) Patient Home Medication List Home Medication List Reviewed: Yes Diclofenac Sodium (Diclofenac Sodium) 75 Mg Tablet., 75 MG PO BID Prescribed by: GARTH ROLDAN on 07/23/19 7914 Omeprazole Magnesium (Prilosec Otc) 20 Mg Tablet., 20 MG PO DAILY Prescribed by: DAVIDE SHAH on 10/30/19 1352 Review of Systems Review of Systems Constitutional: see HPI Eyes: See HPI Ears: See HPI Nose: see HPI Mouth: see HPI Past Trwwzyk-Nihyok-Ulubvk Hx Patient Social History Tobacco Use?: No Use of E-Cig and/or Vaping dev: No Substance use?: No Alcohol Use?: No Pt feels they are or have been: No Seasonal Allergies Seasonal Allergies: No Past Medical History Surgeries: Yes (D&C) Section, Gallbladder, Tonsillectomy Respiratory: No Cardiac: No Neurological: Yes (Ankylosing Spondylitis) Female Reproductive Disorders: Ovarian Cyst HIV/AIDS: No Genitourinary: No Gastrointestinal: No Musculoskeletal: No Endocrine: Yes (Hypoglycemia) HEENT: No Cancer: No Psychosocial: Yes PTSD, Depression Integumentary: No Blood Disorders: Yes (Anemia) Physical Exam Vital Signs Vital Signs - First Documented 01/31/22 15:06 Temp 36.7 Pulse 96 Resp 18 B/P (MAP) 136/87 (103) Pulse Ox 98 O2 Delivery Room Air Height, Weight, BMI Height: '" Weight: lbs. oz. kg; 199.28 BMI Method: General Appearance: WD/WN, no apparent distress Eyes: bilateral eye normal inspection, bilateral eye PERRL, bilateral eye EOMI Ears: bilateral ear auricle normal, bilateral ear canal normal, bilateral ear TM normal Nose: normal inspection, other Mouth/Throat: normal mouth inspection, pharynx normal, other (Left facial tende rness to light touch) Neck: non-tender Progress/Results/Core Measures Results/Orders Vital Signs/I&O 01/31/22 15:06 Temp 36.7 Pulse 96 Resp 18 B/P (MAP) 136/87 (103) Pulse Ox 98 O2 Delivery Room Air Blood Pressure Mean: 103 Departure Communication (Admissions) Symptoms consistent with trigeminal neuralgia. Will start up on carbamazepine with PCP follow-up. Impression Primary Impression: Trigeminal neuralgia of left side of face Disposition: HOME, SELF-CARE Condition: Stable Departure-Patient Inst. Decision time for Depature: 15:47 Referrals: ALIVIA RODRIGUEZ APRN (PCP) Primary Care Physician [facility] (Family) Primary Care Physician Patient Instructions: Trigeminal Neuralgia Add. Discharge Instructions: You were evaluated in the emergency department for left-sided facial pain which is consistent with pain involving your 5th cranial nerve. Please take newly prescribed medication as directed and follow-up with your PCP in 1 week for reevaluation and further management Scripts Carbamazepine (Tegretol Xr) 100 Mg Tab 200 MG PO DAILY, #21 TAB Prov: KIMANI MURPHY DO 01/31/22 KIMANI MURPHY DO Jan 31, 2022 15:48
[2022-01-31] MEDS ORDERED: NF-CARBAMX PO (15:55)
[2022-01-31 16:16] VITALS: BP 136/87
== END 2022-01-31 16:18 | disposition home or self-care (01) ==
LOC: EDUNIT# 15:06 → ER FS 15:07
DX: G50.0 Trigeminal neuralgia (principal)
CPT/HCPCS: 99283